=== PATIENT | female | born 1975 | race American Indian/Alaskan Native ===

== ENCOUNTER 2017-12-22 15:48 | Outpatient (CLI) | payer OTHER | END 2017-12-22 15:49 | disposition home or self-care (01) | LOC: BICRAD 15:48 | PROVIDERS: ATTEND Family Medicine | DX: S30.0XXA Contusion of lower back and pelvis, initial encounter (principal); S20.229A Contusion of unspecified back wall of thorax, initial encounter; S90.31XA Contusion of right foot, initial encounter; M47.896 Other spondylosis, lumbar region | CPT/HCPCS: 72072; 72100 ==